=== PATIENT | female | born 1945 | race Caucasian/White ===

== ENCOUNTER 2016-11-19 09:40 | Emergency (ER) | payer MEDICARE ==
[2016-11-19 12:27] VITALS: BP 135/63
--- NOTE | 2016-11-19 13:34 | UC ---
FLU HPI - HPI Summary HPI Summary: Patient is an otherwise healthy 71F who presents to with complaints of DIALLO, congestion, ear pain bilaterally, cough and body aches. She received the flu shot this year but is a business banking manager for medical appts and notes that she is around several patients who have been ill. Sxs began on Thursday and have consistently gotten worse. Temps at home have been running low and around 100.3. She states she has been taking robitussin for relief, which has helped with the cough. She is here today because she is unable to return to work without a note. - History of Current Complaint Chief Complaint: UCRespiratory Stated Complaint: FLU SYMPTOMS Time Seen by Provider: 11/19/16 12:14 Hx Obtained From: Patient ?: No Onset/Duration: Sudden Onset Severity Currently: Mild Severity Initially: Moderate Pain Intensity: 1 Pain Scale Used: 0-10 Numeric Associated Signs & Symptoms: Positive: Fever, T Max - 100.3, F/C, Myalgia, Cough , Nasal Congestion, Headache Related Hx: Possible Flu/Infectious Exposure - occupation - Risk Factors Influenza Risk Factors: Negative - Allergy/Home Medications Allergies/Adverse Reactions: Allergies Allergy/AdvReac Type Severity Reaction Status Date / Time Ergonovine [From Ergotrate] Allergy Rash Verified 03/25/15 18:09 Sulfa Antibiotics Allergy Altered Verified 03/25/15 18:08 Mental Status Sulfisoxazole Allergy Altered Verified 03/25/15 18:08 [From Gantrisin] Mental Status Vitamin E Allergy Rash Verified 03/25/15 18:09 PMH/Surg Hx/FS Hx/Imm Hx Previously Healthy: Yes Endocrine History Of: Denies: Diabetes, Thyroid Disease Cardiovascular History Of: Denies: Cardiac Disorders, Hypertension Respiratory History Of: Reports: Asthma, Bronchitis Denies: COPD GI/ History Of: Denies: Ulcer Cancer History Of: Denies: Breast Cancer - Surgical History Surgical History: Yes Surgery Procedure, Year, and Place: D&C; right meniscus repair; colonoscopy - Family History Known Family History: Positive: Unknown - Social History Occupation: Employed Full-time Lives: With Family Alcohol Use: Rare Substance Use Type: None Smoking Status (MU): Former Smoker Have You Smoked in the Last Year: No When Did the Patient Quit Smoking/Using Tobacco: 1972 Review of Systems Constitutional: Fever, Fatigue Skin: Negative Eyes: Drainage ENT: Nasal Discharge Respiratory: Cough Cardiovascular: Negative Motor: Negative Neurovascular: Negative Musculoskeletal: Myalgia Neurological: Headache All Other Systems Reviewed And Are Negative: Yes Physical Exam Triage Information Reviewed: Yes Appearance: Well-Appearing, No Pain Distress, Well-Nourished Vital Signs: Initial Vital Signs Temp 99.9 F 11/19/16 12:20 Pulse 76 11/19/16 12:20 Resp 18 11/19/16 12:20 BP 135/63 11/19/16 12:20 Pulse Ox 96 11/19/16 12:20 Vital Signs Reviewed: Yes Eye Exam: Normal Eyes: Positive: Conjunctiva Clear Dental Exam: Normal Neck: Positive: Supple, No Lymphadenopathy Respiratory Exam: Normal Cardiovascular Exam: Normal Cardiovascular: Positive: RRR Neurological Exam: Normal Neurological: Positive: Alert Psychological: Positive: Normal Response To Family, Age Appropriate Behavior Skin Exam: Normal Flu Course/Dx - Course Course Of Treatment: FLU POSITIVE. SYMPTOMS BEGAN 4 DAYS AGO SO SHE IS NOT A CANDIDATE FOR TAMIFLU. NOTE GIVEN FOR WORK AND ENCOURAGED REST, FLUIDS AND TYLENOL NEEDED. PATIENT AGREES TO FOLLOW UP AND IS OK FOR DISCHARGE. PATIENT LOOKING WELL AND STABLE. - Differential Dx/Diagnosis Differential Diagnosis/HQI/PQRI: Bronchitis, Influenza, Pneumonia Provider Diagnoses: INFLUENZA B Discharge - Discharge Plan Condition: Stable Disposition: HOME Patient Education Materials: Influenza (ED) Forms: *Work Release Referrals: Tatyana Morales MD [Primary Care Provider] - Additional Instructions: Continue robitussin at home as needed for cough Rest Drink plenty of fluids Hot tea with lemon and honey Humidifier in the home will help
== END 2016-11-19 13:27 | disposition home or self-care (01) ==
LOC: UCEAST 09:40
DX: J11.1 Influenza due to unidentified influenza virus with other respiratory manifestations (principal); J45.909 Unspecified asthma, uncomplicated; Z88.2 Allergy status to sulfonamides; Z88.8 Allergy status to other drugs, medicaments and biological substances
CPT/HCPCS: 87502; 99211; G0463

== ENCOUNTER 2017-04-04 15:37 | Emergency (ER) | payer MEDICARE ==
[2017-04-04 16:14] VITALS: BP 156/73
--- NOTE | 2017-04-04 16:33 | UC ---
Lower Extremity/Ankle HPI - History of Current Complaint Chief Complaint: UCLowerExtremity Stated Complaint: KNEE PAIN Time Seen by Provider: 04/04/17 16:16 Hx Obtained From: Patient Onset/Duration: Gradual Onset - was doing exercises on the floor by kneeling on a pillow. 2-3 times her knee slipped off pillow and on to floor. this was 1 monthago. she has ahd pain on inside of R knee since inicdents. no pain while sitting or driving. pain when rising or standing. has tried ice and heat with little relief. no calf pain or redness Severity Initially: Mild Severity Currently: Mild - ocassionally worsens to moderate Aggravating Factor(s): Standing Alleviating Factor(s): Rest Able to Bear Weight: Yes - Allergies/Home Medications Allergies/Adverse Reactions: Allergies Allergy/AdvReac Type Severity Reaction Status Date / Time Ergonovine [From Ergotrate] Allergy Rash Verified 04/04/17 16:14 Sulfa Antibiotics Allergy Altered Verified 04/04/17 16:14 Mental Status Sulfisoxazole Allergy Altered Verified 04/04/17 16:14 [From Gantrisin] Mental Status Vitamin E Allergy Rash Verified 04/04/17 16:14 PMH/Surg Hx/FS Hx/Imm Hx Previously Healthy: Yes Respiratory History: Asthma - Surgical History Surgical History: Yes Surgery Procedure, Year, and Place: D&C; right meniscus repair; colonoscopy - Family History Known Family History: Positive: Unknown - Social History Occupation: Retired Lives: Alone Alcohol Use: Rare Substance Use Type: None Smoking Status (MU): Former Smoker Have You Smoked in the Last Year: No When Did the Patient Quit Smoking/Using Tobacco: 1973 Review of Systems Constitutional: Negative Skin: Negative Respiratory: Negative Cardiovascular: Negative Musculoskeletal: Other: - pain R knee Neurological: Negative Psychological: Negative All Other Systems Reviewed And Are Negative: Yes Physical Exam Triage Information Reviewed: Yes Appearance: Well-Appearing, No Pain Distress, Well-Nourished Vital Signs: Initial Vital Signs Temp 96.6 F 04/04/17 16:08 Pulse 90 04/04/17 16:08 Resp 16 04/04/17 16:08 BP 156/73 04/04/17 16:08 Pulse Ox 98 04/04/17 16:08 Vital Signs Reviewed: Yes Respiratory Exam: Normal Cardiovascular Exam: Normal Musculoskeletal: Positive: Strength Intact, ROM Intact, Other: - point tenderness medial R knee tibial plateu area. no calf tenderness/redness/ swelling no evidence swelling knee Neurological Exam: Normal Psychological Exam: Normal Skin Exam: Normal Lower Extremity Course/Dx - Differential Dx/Diagnosis Differential Diagnosis/HQI/PQRI: Bursitis, Contusion, DVT, Fracture (Closed), Sprain, Strain Provider Diagnoses: R knee pain Discharge - Discharge Plan Condition: Stable Disposition: HOME Patient Education Materials: Knee Pain (ED) Referrals: Tatyana Morales MD [Primary Care Provider] - 2 Days (if no better) Additional Instructions: elevate your leg use knee immobilizer to rest knee as directed use naproxen as directed report to ER if your pain worsens
== END 2017-04-04 16:39 | disposition home or self-care (01) ==
LOC: UCEAST 15:37
DX: M25.561 Pain in right knee (principal); Z88.2 Allergy status to sulfonamides; Z88.8 Allergy status to other drugs, medicaments and biological substances
CPT/HCPCS: 99212; G0463

== ENCOUNTER 2017-07-21 08:14 | Inpatient (IN) | payer MEDICARE ==
--- NOTE | 2017-07-08 11:34 | HP ---
HISTORY AND PHYSICAL: DATE OF ADMISSION/SURGERY: 07/21/17 DATE OF OFFICE VISIT: 07/06/17 SURGEON: Amada Sanchez MD.* (DICTATED BY MK MOORE) PROCEDURE: Right total knee arthroplasty. CHIEF COMPLAINT: Right knee pain. HISTORY OF PRESENT ILLNESS: Ms. Jenise Perry is a 71-year-old female with complaints of right knee pain secondary to end-stage osteoarthritis. She has failed conservative management and elected to proceed with a right total knee arthroplasty, which is scheduled for 07/21/[address] Sanchez. PAST MEDICAL HISTORY: Migraines and exercise-induced asthma. PAST SURGICAL HISTORY: D and C, right knee arthroscopy, and dental implants. CURRENT MEDICATIONS: 1. Naproxen. 2. Ventolin inhaler. ALLERGIES: To BACTRIM, IBUPROFEN, and STATIN. FAMILY HISTORY: Denies. SOCIAL HISTORY: She is a 71-year-old female. She is retired. She denies the use of drugs. She does not smoke. She uses occasional alcohol. REVIEW OF SYSTEMS: A complete 14-point review of systems was reviewed with the patient, and was all negative and noncontributory. PHYSICAL EXAMINATION GENERAL: She is well developed, well nourished, in no acute distress. VITAL SIGNS: She stands 5 feet 2 inches tall, weighs 160 pounds. Her blood pressure is 140/70, her heart rate is 64. HEENT: Normocephalic, atraumatic. NECK: Supple. No palpable lymph nodes. PULMONARY: The lungs are clear to auscultation bilaterally. CARDIO: Regular rate and rhythm. Strong S1, S2. ABDOMEN: Soft, nontender, and nondistended. NEUROLOGICAL: Alert and oriented x3. Cranial nerves II through XII are intact. MUSCULOSKELETAL: Right lower extremity, the skin is intact. There are no open wounds or abrasions. She has moderate joint effusion, tenderness over the medial and lateral joint line. 10 to 120 degrees of flexion with patellofemoral crepitus. 2+ dorsalis pedis pulses. Intact sensation and her lower extremity muscle group strengths are intact to 5/5. ASSESSMENT AND PLAN: Ms. Jenise Perry is a 71-year-old female with complaints of right knee pain secondary to endstage osteoarthritis. She has failed conservative management and elected to proceed with a right total knee arthroplasty, which is scheduled for 07/21/[address] Sanchez discussed the risks and benefits of the surgery at today's visit and all of her questions were answered. Coumadin, Colace, and Percocet were sent to her pharmacy for postoperative pain control and DVT prophylaxis. She will be see Dr. Sanchez back in 2 weeks after the surgery. MK MOORE [id number]/[facility] #: [id number] [facility] HOSPITALBhargav
[~2017-07-21 08:14] MED LIST: Buffered Lidocaine 0.9% SYRIN* 5 ML/SYR SYRINGE INTRADERM ONE; Buffered Lidocaine 0.9% SYRIN* 5 ML/SYR SYRINGE ONE; Dexamethasone IV* 4 MG/ML 1 ML (4 MG) IV SLOW PU ONE; Dexamethasone IV* 4 MG/ML 1 ML (4 MG) ONE; Famotidine IV* 10 MG/ML 2 ML (20 mg) IV ONE; Famotidine IV* 10 MG/ML 2 ML (20 mg) ONE; ceFAZolin 2 GM PREMIX (*) 2 GM/50 ML BAG IVPB ONE
[2017-07-21] MEDS ORDERED: KETAMINE HCL* 50 MG/ML 10 ML VIAL ONE (11:16)
[2017-07-21] MEDS ORDERED: Midazolam* 1 MG/ML 10 ML VIAL (10 MG) ONE (11:16)
[2017-07-21] MEDS ORDERED: Morphine PF AMP (0.5MG/ML)* 5 MG/10 ML AMP ONE (11:16)
[2017-07-21] MEDS ORDERED: Ondansetron INJ* 2 MG/ML VIAL ONE (11:17)
[2017-07-21] MEDS ORDERED: Bupivacaine 0.5% SDV PF* 30 ML VIAL ONE (11:17)
[2017-07-21] MEDS ORDERED: Propofol* 10 MG/ML 20 ML BTL IV PUSH ONE ×2 (11:17→13:40)
[2017-07-21] MEDS ORDERED: Lidocaine 2% PF * 5 ML VIAL ONE (12:06)
[2017-07-21] MEDS ORDERED: Naloxone* 0.4 MG/ML 1 ML VIAL IV PRN (12:26)
[2017-07-21] MEDS ORDERED: Nalbuphine* 20 MG/ML 1 ML VIAL IV PRN ×2 (12:26)
[2017-07-21] MEDS ORDERED: oxyCODONE/Acetamin 5/325 MG* TAB PO PRN ×2 (12:26)
[2017-07-21] MEDS ORDERED: DiMENhydriNATE IV* 50 MG/ML VIAL IV PUSH PRN (12:26)
[2017-07-21] MEDS ORDERED: Ondansetron INJ* 2 MG/ML VIAL IV PRN (12:26)
[2017-07-21] MEDS ORDERED: Bisacodyl SUPP* 10 MG SUPP PR PRN (13:17)
[2017-07-21] MEDS ORDERED: Temazepam CAP* 15 MG PO PRN (13:17)
[2017-07-21] MEDS ORDERED: Polyethylene Glycol 3350* 17 GM PACKET PO PRN (13:17)
[2017-07-21] MEDS ORDERED: Albuterol HFA INHALER* 8 gm MDI INH PRN (13:26)
[2017-07-21] MEDS ORDERED: Ascorbic Acid TAB* 500 MG PO PRN (13:26)
[2017-07-21] MEDS ORDERED: DiMENhydriNATE IV* 50 MG/ML VIAL ONE (15:23)
[2017-07-21] MEDS ORDERED: Scopolamine 1.5 mg* PATCH ONE (15:23)
[2017-07-21] MEDS: Scopolamine 1.5 mg* PATCH TRANSDERM SCH (15:24)
--- NOTE | 2017-07-21 15:42 | RAD ---
INDICATION: Right knee arthroplasty-postop COMPARISON: June 08, 2017 TECHNIQUE: AP and lateral views were obtained. FINDINGS: There is right knee arthroplasty. Both femoral and tibial components appear well seated. There is a cooling jacket. A surgical drain is in place. IMPRESSION: POST OPERATIVE RIGHT TOTAL KNEE
[2017-07-21] MEDS: Ropivacaine* 300 MG in NS 0.9% 250 ML* 240 ML EPIDURAL SCH (16:46)
[2017-07-21] MEDS ORDERED: Warfarin TAB(*) 6 MG PO ONE (17:00)
[2017-07-21] MEDS: ceFAZolin 1 GM VIAL(*) 1 GM in D5W 50 ML BAG* 50 ML IVPB SCH (20:09)
[2017-07-21] MEDS: Docusate CAP* 100 MG PO SCH (20:11)
[2017-07-21] MEDS: Magnesium Hydroxide LIQ* 30 ML UDC PO SCH (20:11)
[2017-07-22] MEDS: ceFAZolin 1 GM VIAL(*) 1 GM in D5W 50 ML BAG* 50 ML IVPB SCH ×2 (03:40→11:37)
--- NOTE | 2017-07-22 04:57 | OP ---
DATE OF OPERATION: 07/21/17 - ROOM #347 DATE OF : 47 ATTENDING SURGEON: Amada Sanchez MD HAMMER DRIVER: MK Daniel. Ms. Vu did help throughout the procedure with preparation of the leg, wound retraction, manipulation of the knee, and wound closure. ANESTHESIOLOGIST: Dr. Vidal. ANESTHESIA: Spinal. PRE-OP DIAGNOSIS: Severe end-stage degenerative osteoarthritis of the right knee joint. POST-OP DIAGNOSIS: Severe end-stage degenerative osteoarthritis of the right knee joint. OPERATIVE PROCEDURE: Right total knee arthroplasty. TOURNIQUET TIME: 54 minutes. COMPLICATIONS: None. SPECIMENS: Bone and cartilage from the right knee joint sent to Pathology. ESTIMATED BLOOD LOSS: 300 cc. HARDWARE USED: This is cemented [employer] total knee arthroplasty hardware. Two packages of Simplex bone cement. For the femur, a size 5 right narrow femoral Legion component and a tibia size 3, Mariel II tibial baseplate. For the insert, a 9 mm posterior stabilized articular insert, size 3 -4 and for the patella a 32-mm 7.5 thickness, 3-peg all poly patella. BRIEF HISTORY/INDICATIONS: Ms. Jenise Perry is a 71-year-old female with years of increasingly severe right knee pain. She failed conservative treatment with anti- inflammatories, pain medication, physical therapy, and intraarticular injections. Radiographs confirmed severe end-stage arthritis with [id number] contact. Due to continued pain and decreased quality of life , she elected to undergo right total knee arthroplasty. Informed consent was obtained from the patient. She understood the risks of surgery, included but were not limited to bleeding, infection, damage to nearby structures, continued pain, need for further surgery, intraoperative fracture, nerve palsy, hardware failure or loosening, knee stiffness, loss of motion, stroke, heart attack, blood clot, and . She wished to proceed. INTRAOPERATIVE FINDINGS: Intraoperatively, the patient was noted to have tricompartmental degenerative osteoarthritis with full-thickness loss of cartilage. DESCRIPTION OF PROCEDURE: Ms. Jenise Perry was identified in the preanesthesia unit. Her right lower extremity was marked as the correct operative side. Informed consent was signed and placed in the chart. The patient was taken to the operating room and placed under spinal anesthesia. A Torres catheter was placed. Tourniquet was placed on the right thigh. Right lower extremity was prepped and draped in the usual sterile fashion. Preop time -out was made to correctly identify the patient's side and site. Appropriate perioperative antibiotics were given within 1 hour of incision. Tourniquet was inflated. A 14-cm midline incision was made with a 10-blade and carried down to the extensor mechanism. New 10-blade was used to make a standard medial parapatellar arthrotomy. Patella was subluxed laterally. Electrocautery was used to subperiosteally elevate soft tissue off the superomedial tibia to the mid sagittal plane. The knee was flexed up. A drill was used to enter the distal femur. Intramedullary distal femoral cutting guide was pinned on the distal femur. Oscillating saw was used to make the appropriate distal femoral cut. Next, the external rotation guide was pinned on the distal femur and the distal femur was sized to size 5. Size 5 multi- cutting jig was pinned on the distal femur. Oscillating saw was used to make the appropriate 4 chamfer cuts. The PCL was completely released. The tibia was subluxed anteriorly. Extramedullary tibial cutting guide was pinned on the proximal tibia. Oscillating saw was used to make the proximal tibial cut perpendicular to the mechanical axis of the tibia. The bone was carefully removed. The knee was brought out into full extension. A spacer block had good fit. There was medial and lateral ligamentous balancing. Flexion and extension gaps were well balanced. The knee was flexed up. The lamina focuser was placed both medially and laterally. Any remaining meniscus was carefully removed using electrocautery. Curved osteotome was used to remove any posterior osteophytes. Tibial tray and drop xin were placed and confirmed a satisfactory tibial cut. Size 5 narrow right femoral trial was impacted on to the distal femur and had excellent fit. The box for the posterior stabilized implant was prepared using a reamer and box cut osteotome. Size 3 tibial tray with a 9-mm insert trial was placed and the knee was taken through a range of motion. The knee had full extension and 130 degrees of flexion with good patellofemoral tracking. The patella was everted. A 7-mm of patellar bone and cartilage was carefully removed using an oscillating saw. The patella was sized to a size 32. Three peg holes were drilled through the size 32 guide. A 32 trial was placed and the knee was taken through a range of motion. There was satisfactory patellofemoral tracking. All trials were carefully removed. The tibia was subluxed anteriorly and sized to a size 3. Proximal tibia was prepared using a size 3 keel punch. All bony cut surfaces were copiously irrigated with sterile saline and dried. Final implants were cemented into place starting with the tibia, followed by the femur , and last the patella. A 9-mm insert trial was placed while the knee was brought into full extension. Tourniquet was turned down at 54 minutes. The knee was copiously irrigated with sterile saline. Electrocautery was used to obtain meticulous hemostasis. Once the cement had fully cured, the insert trial was removed. Any extra cement was carefully removed from around the implants and capsule. Final insert chosen was a 9-mm posterior stabilized articular insert size 3-4. This was locked into position on the tibial tray. Stability of the insert was checked and rechecked and noted to be stable. The extensor mechanism was closed using interrupted #1 Vicryls over a medium Hemovac drain. The rest of the incision was closed in a layered fashion using 0 and 2-0 Vicryls. Skin was closed using running 3-0 nylon suture. Sterile Xeroform, 4x4s, and Webril were used to cover the incision. Vitaly wrap and cold pack were placed over this. The patient's anesthesia was reversed without difficulty. She was taken to the PACU in stable condition. Intended weightbearing will be weightbearing as tolerated. Intended DVT prophylaxis will be Coumadin with a Lovenox bridge. [id number]/[facility] #: [id number] ROSA
[2017-07-22 05:31] LABS: Hematocrit 37 % (35-47); Hemoglobin 12.2 g/dl (12.0-16.0)
[2017-07-22 05:46] LABS: BUN/Creatinine Ratio 17.6 (8-20); Calcium 8.8 mg/dL (8.6-10.3); EGFR African American 78.6 (>60); EGFR Non-African American 61.1 (>60); Potassium 4.4 mmol/L (3.5-5.0)
[2017-07-22] MEDS ORDERED: Ondansetron TAB* 4 MG PO PRN (06:00)
[2017-07-22] MEDS ORDERED: oxyCODONE/Acetamin 5/325 MG* TAB PO PRN (06:00)
[2017-07-22] MEDS ORDERED: Acetaminophen TAB* 325 MG PO PRN (06:01)
[2017-07-22] MEDS ORDERED: diPHENhydraMINE IV* 50 MG/ML 1 ml VIAL (BENADRYL) IV PRN (06:01)
[2017-07-22] MEDS ORDERED: Morphine INJ* 2 MG/ML 1 ML SYRINGE (TWO MG - NEW SYRINGE VERSION) IV PRN (06:01)
[2017-07-22] MEDS ORDERED: diPHENhydraMINE PO* 25 MG PO PRN (06:01)
[2017-07-22] MEDS ORDERED: Ondansetron INJ* 2 MG/ML VIAL IV PRN (06:01)
[2017-07-22] MEDS: Docusate CAP* 100 MG PO SCH ×2 (08:33→22:17)
[2017-07-22] MEDS: oxyCODONE TAB* 5 MG TAB PO PRN ×3 (08:33→21:55)
[2017-07-22] MEDS: Magnesium Hydroxide LIQ* 30 ML UDC PO SCH ×2 (08:33→22:17)
--- NOTE | 2017-07-22 08:57 | PN ---
Progress Note - Progress Note Date of Service: 07/22/17 SOAP: Subjective: [] Patient seen OOB in chair. She denies RLE pain, chest pain, SOB and nausea. Objective: [] Vital Signs Temp 98.2 F 07/22/17 07:32 Pulse 54 07/22/17 07:32 Resp 18 07/22/17 08:33 BP 95/43 07/22/17 07:32 Pulse Ox 99 07/22/17 08:00 Intake & Output 07/21/17 07/22/17 07/22/17 18:59 06:59 18:59 Intake Total 1890 2030 800 Output Total 1000 625 Balance 890 1405 800 Weight 164 lb Intake: IV Fluids 1650 980 LR 1600 980 NS 50ML, Cefazolin 2G 50 IVPB 50 ABX - CEFAZOLIN 50 Oral 240 1000 800 Output: Torres 800 625 Estimated Blood Loss 200 Laboratory Last Values Hgb 12.2 g/dl (12.0-16.0) 07/22/17 05:12 Hct 37 % (35-47) 07/22/17 05:12 INR (Anticoag Therapy) 1.04 (0.77-1.02) H 07/22/17 05:12 Sodium 135 mmol/L (133-145) 07/22/17 05:12 Potassium 4.4 mmol/L (3.5-5.0) 07/22/17 05:12 Chloride 101 mmol/L (101-111) 07/22/17 05:12 Carbon Dioxide 31 mmol/L (22-32) 07/22/17 05:12 Anion Gap 3 mmol/L (2-11) 07/22/17 05:12 BUN 16 mg/dL (6-24) 07/22/17 05:12 Creatinine 0.91 mg/dL (0.51-0.95) 07/22/17 05:12 Est GFR ( Amer) 78.6 (>60) 07/22/17 05:12 Est GFR (Non-Af Amer) 61.1 (>60) 07/22/17 05:12 BUN/Creatinine Ratio 17.6 (8-20) 07/22/17 05:12 Glucose 116 mg/dL (70-100) H 07/22/17 05:12 Calcium 8.8 mg/dL (8.6-10.3) 07/22/17 05:12 General: Well appearing, No acute distress RLE: Dressing CDI. Dr Sanchez removed drain without complication this morning Bilateral Lower Extremities: Calves supple and nontender without erythema, edema or palpable cords. Negative nay's sign. Sensation intact distally. 2+ DP /PT. DF/PF intact Assessment: [] POD 1 s/p right total knee arthroplasty 07/20, Dr. Sanchez. Plan: []WBAT PT/OT Lovenox, coumadin 8 mg today Continued pain control
[2017-07-22] MEDS: Enoxaparin(*) 40 MG/0.4 ML SYR SUBCUT SCH (11:38)
[2017-07-22] MEDS: Ropivacaine* 300 MG in NS 0.9% 250 ML* 240 ML EPIDURAL SCH (12:47)
[2017-07-22] MEDS: oxyCODONE/Acetamin 5/325 MG* TAB PO PRN (13:00)
[2017-07-22] MEDS ORDERED: Warfarin TAB(*) 4 MG PO ONE (17:00)
[2017-07-23] MEDS: oxyCODONE/Acetamin 5/325 MG* TAB PO PRN ×3 (02:33→21:29)
[2017-07-23 07:13] LABS: Hematocrit 36 % (35-47)
[2017-07-23] MEDS: Cyclobenzaprine TAB* 10 MG PO PRN ×2 (08:31→17:13)
[2017-07-23] MEDS: Docusate CAP* 100 MG PO SCH ×2 (08:31→21:30)
[2017-07-23] MEDS: Magnesium Hydroxide LIQ* 30 ML UDC PO SCH ×2 (08:31→21:30)
--- NOTE | 2017-07-23 08:58 | PN ---
Progress Note - Progress Note Date of Service: 07/23/17 SOAP: Subjective: []Patient seen OOB in chair. She is complaining of pain and tightness of her operative knee both anteriorly and posteriorly. She feels as though she has a "santo's cyst behind her knee". She denies chest pain or shortness of breath but confirms congestion. She is nauseous. She has not been using her incentive spirometer as she was unsure if she was using it correctly. Objective: [] Vital Signs Temp 98.1 F 07/23/17 08:03 Pulse 77 07/23/17 08:03 Resp 16 07/23/17 08:31 BP 151/57 07/23/17 08:03 Pulse Ox 100 07/23/17 08:03 Intake & Output 07/22/17 07/23/17 07/23/17 18:59 06:59 18:59 Intake Total 2366 1175 Output Total 650 2050 500 Balance 1716 -875 -500 Intake: IV Fluids 1046 ABX - CEFAZOLIN 105 LR 941 Oral 1320 1175 Output: Urine 550 2050 500 Emesis 100 Other: Estimated Void Large # Voids 1 Laboratory Last Values Hgb 12.0 g/dl (12.0-16.0) 07/23/17 07:02 Hct 36 % (35-47) 07/23/17 07:02 INR (Anticoag Therapy) 1.43 (0.77-1.02) H 07/23/17 07:02 Sodium 135 mmol/L (133-145) 07/22/17 05:12 Potassium 4.4 mmol/L (3.5-5.0) 07/22/17 05:12 Chloride 101 mmol/L (101-111) 07/22/17 05:12 Carbon Dioxide 31 mmol/L (22-32) 07/22/17 05:12 Anion Gap 3 mmol/L (2-11) 07/22/17 05:12 BUN 16 mg/dL (6-24) 07/22/17 05:12 Creatinine 0.91 mg/dL (0.51-0.95) 07/22/17 05:12 Est GFR ( Amer) 78.6 (>60) 07/22/17 05:12 Est GFR (Non-Af Amer) 61.1 (>60) 07/22/17 05:12 BUN/Creatinine Ratio 17.6 (8-20) 07/22/17 05:12 Glucose 116 mg/dL (70-100) H 07/22/17 05:12 Calcium 8.8 mg/dL (8.6-10.3) 07/22/17 05:12 General: Well appearing sitting in chair. Patient is in pain while her dressing is changed and with even slight movement of her right knee. RLE: Dressing changed. Incision CDI. No discharge. Mild purple bruising around the incision site as well as along the lateral jointline. No fluctuance. Patient is tender to palpation in the popliteal area. Bilateral lower extremities: Calves are soft and supple. Right calf tender proximally. No palpable cords. Negative nay's sign. DP/PT pulses 2+. DF/PF intact. Sensation intact distally. Assessment: []POD 2 s/p right total knee arthroplasty 07/21 Dr Sanchez Plan: []WBAT PT/OT Lovenox, coumadin 4 mg today Reviewed proper use of and importance of incentive spirometer Ordered R venous dopplar due to pain of posterior knee/calf Plan for DC 07/24, TBD rehab vs home
[2017-07-23] MEDS: Ropivacaine* 300 MG in NS 0.9% 250 ML* 240 ML EPIDURAL SCH (12:14)
[2017-07-23] MEDS: Enoxaparin(*) 40 MG/0.4 ML SYR SUBCUT SCH (12:27)
--- NOTE | 2017-07-23 12:29 | RAD ---
HISTORY: Calf pain, status post right total knee arthroplasty COMPARISONS: July 08, 2017 TECHNIQUE: Multiple transverse and longitudinal ultrasound images were obtained of the right lower extremity from the level of the common femoral vein inferiorly through to the infrapopliteal veins using grayscale, color Doppler, and spectral Doppler imaging with and without compression and with augmentation. Comparison images were obtained of the contralateral common femoral vein. FINDINGS: VEINS: The venous system of the right lower extremity is compressible throughout its course, with normal flow on color Doppler imaging and normal response to augmentation on spectral Doppler imaging. SOFT TISSUES: Unremarkable. OTHER FINDINGS: None. IMPRESSION: NO RIGHT LOWER EXTREMITY DEEP VEIN THROMBOSIS
[2017-07-23] MEDS ORDERED: Warfarin TAB(*) 4 MG PO ONE (17:00)
[2017-07-24] MEDS: oxyCODONE/Acetamin 5/325 MG* TAB PO PRN ×3 (02:48→12:16)
[2017-07-24 06:48] LABS: Hematocrit 38 % (35-47); Hemoglobin 12.9 g/dl (12.0-16.0)
[2017-07-24] MEDS: Docusate CAP* 100 MG PO SCH (07:34)
--- NOTE | 2017-07-24 07:34 | PN ---
Progress Note - Progress Note Date of Service: 07/24/17 SOAP: Subjective: Pt. is alert, reports pain is controlled. Objective: RLE - dressing c/d/i. distally nvi. Vital Signs: Temp Pulse Resp BP Pulse Ox 98.1 F 70 16 117/56 94 07/24/17 04:03 07/24/17 04:03 07/24/17 05:26 07/24/17 04:03 07/24/17 04:03 Laboratory Results - last 24 hr 07/23/17 07/23/17 07/24/17 07:02 07:02 06:11 Hgb 12.0 12.9 Hct 36 38 INR (Anticoag Therapy) 1.43 H 07/24/17 06:11 Hgb Hct INR (Anticoag Therapy) 1.51 H Assessment: 71 yo F pod 3 s/p RTKA Plan: wbat rle lovenox today - 6 mg coumadin tonight pt/ot plan d/c to snf today - [facility]
[2017-07-24] MEDS: Cyclobenzaprine TAB* 10 MG PO PRN (07:36)
[2017-07-24] MEDS: Magnesium Hydroxide LIQ* 30 ML UDC PO SCH (08:37)
--- NOTE | 2017-07-24 10:40 | PN ---
Progress Note - Progress Note Date of Service: 07/24/17 SOAP: Subjective: 71 y/o female s/p R TKA by DR Sanchez 07/21/2017. The patient is concerned about going to rehabilitation, however understands it would benefit her recover. VSS afebrile overnight. Doppler negative for DVT overnight. [facility] Objective: General- Well appearing, NAD, MSK- Dressing taken down, incision c/d/i, new dressing placed, moderate swelling , mild ecchymosis, mild edema around incision proximally. + DF/PF b/l, negative homans b/l. Vital Signs Temp 97.9 F 07/24/17 07:35 Pulse 80 07/24/17 07:35 Resp 16 07/24/17 07:38 BP 131/53 07/24/17 07:35 Pulse Ox 100 07/24/17 07:35 Intake & Output 07/23/17 07/24/17 07/24/17 18:59 06:59 18:59 Intake Total 830 640 Output Total 1800 0 Balance -970 640 Intake: Oral 830 640 Output: Urine 1800 0 Other: Estimated Void Large Medium # Bowel Movements 1 Estimated Stool Amount Large # Voids 1 1 Assessment: 71 y/o female s/p R TKA by DR Sanchez 07/21/2017. Plan: - [facility] - Continue current pain control - Continue PT as shown - DVT pro- INR 1.5, continue lovenox, coumadin 6mg tonight Acetaminophen (Tylenol Tab*) 650 mg PO Q4H PRN PRN Reason: PAIN OR TEMPERATURE Albuterol (Ventolin Hfa Inhaler*) 1 puff INH Q4HR PRN PRN Reason: SOB/WHEEZING Last Admin: 07/22/17 07:45 Dose: 1 puff Ascorbic Acid (Vitamin C Tab*) 500 mg PO ONCE PRN PRN Reason: COLD SYMPTOMS Bisacodyl (Dulcolax Supp*) 10 mg TN DAILY PRN PRN Reason: constipation Cyclobenzaprine HCl (Flexeril Tab*) 10 mg PO TID PRN PRN Reason: SPASMS Last Admin: 07/24/17 07:36 Dose: 10 mg Diphenhydramine HCl (Benadryl Iv*) 25 mg IV Q6H PRN PRN Reason: itching Diphenhydramine HCl (Benadryl Po*) 25 mg PO Q6H PRN PRN Reason: itching Docusate Sodium (Colace Cap*) 100 mg PO BID [facility] Last Admin: 07/24/17 07:34 Dose: 100 mg Enoxaparin Sodium (Lovenox(*)) 40 mg SUBCUT Q24H [facility] Last Admin: 07/23/17 12:27 Dose: 40 mg Ropivacaine 300 mg/ Sodium (Chloride) 300 mls @ 0 mls/hr EPIDURAL Q24H [facility]; Per Protocol PRN Reason: Protocol Last Admin: 07/23/17 12:14 Dose: Not Given Lactated Ringer's (Lactated Ringers 1000 Ml Bag*) 1,000 mls @ 100 mls/hr IV PER RATE [facility] Last Admin: 07/22/17 03:36 Dose: 100 mls/hr Lactulose (Lactulose*) 30 ml PO Q6H PRN PRN Reason: constipation Magnesium Hydroxide (Milk Of Magnesia Liq*) 30 ml PO BID [facility] Last Admin: 07/24/17 08:37 Dose: Not Given Morphine Sulfate (Morphine Inj (Syringe)*) 2 mg IV Q2H PRN PRN Reason: PAIN Ondansetron HCl (Zofran Inj*) 4 mg IV Q6H PRN PRN Reason: nausea Ondansetron HCl (Zofran Tab*) 4 mg PO Q6H PRN PRN Reason: NAUSEA Oxycodone HCl (Roxycodone Tab*) 10 mg PO Q4H PRN PRN Reason: PAIN Last Admin: 07/22/17 21:55 Dose: 10 mg Oxycodone/Acetaminophen (Percocet 5/325 Tab*) 1 tab PO Q4H PRN PRN Reason: PAIN Oxycodone/Acetaminophen (Percocet 5/325 Tab*) 2 tab PO Q4H PRN PRN Reason: PAIN Last Admin: 07/24/17 07:34 Dose: 2 tab Pharmacy Profile Note (Scopolamine Patch Remove*) 1 note PATCH OFF .AFTER 72 HOURS ONE Stop: 07/24/17 15:24 Pharmacy Profile Note (Coumadin Daily Reminder*) 1 note FOLLOW UP 1700 [facility] Last Admin: 07/23/17 17:13 Dose: 1 note Polyethylene Glycol/Electrolytes (Miralax*) 17 gm PO DAILY PRN PRN Reason: Constipation Scopolamine (Transderm-Scop 1.5 Mg Patch*) 1 patch TRANSDERM Q72H [facility] Stop: 07/24/17 15:22 Last Admin: 07/21/17 15:24 Dose: 1 patch Temazepam (Restoril Cap*) 15 mg PO BEDTIME PRN PRN Reason: INSOMNIA Warfarin Sodium (Coumadin Tab(*)) 6 mg PO ONCE@1700 [facility] PRN Reason: Protocol Stop: 07/24/17 17:01
[2017-07-24 11:44] VITALS: BP 122/61
--- NOTE | 2017-07-24 12:06 | DS ---
DATE OF ADMISSION: 07/21/2017. DATE OF DISCHARGE: 07/24/2017. ATTENDING PHYSICIAN: Dr. Amada Sanchez * (dictated by MK Rice). CHIEF COMPLAINT: 1. Right knee pain. 2. Migraines. 3. Exercise-induced asthma. DISCHARGE DIAGNOSES: 1. Status post right total knee arthroplasty. 2. History of migraines. 3. History of exercise-induced asthma. PROCEDURE: Right total knee arthroplasty. CONSULTATIONS: 1. Physical Therapy. 2. Occupational Therapy. BRIEF HISTORY: Ms. Jenise Perry is a very pleasant, 71-year-old female with severe end-stage degenerative osteoarthritis of the right knee who failed conservative treatment and elected to undergo a right total knee arthroplasty on 07/21/[address] Amada Sanchez. HOSPITAL COURSE: Ms. Jenise Perry was admitted to [facility] on 12/2016 where she underwent a right total knee arthroplasty by Dr. Amada Sanchez which was uncomplicated. Estimated blood loss was 300 cc. The patient recovered on the Surgical Short Stay Unit. Her Torres was removed on postoperative day two and she was voiding on her own without difficulty. She was advanced to a regular diet and her pain was controlled with p.o. Percocet and Flexeril. She was restarted on her home medications. Her labs and vital signs remained stable. She was able to bear weight as tolerated on the right lower extremity; however, she advanced slowly with physical therapy and it was recommended the patient be discharged to outpatient rehab. Her DVT prophylaxis was managed with Lovenox and Coumadin. By postoperative day three, she was orthopedically and medically stable for discharge to go to [facility] for rehabilitation services. PHYSICAL EXAMINATION: General: Well-appearing, in no acute distress, alert and oriented. Vitals Signs on the day of discharge: Pulse 80, temperature 97.9, respirations 16, blood pressure 131/53, pulse oxygenation 100 percent on room air. Examination of the right lower extremity demonstrates the surgical incision to be clean, dry and intact with moderate swelling and mild ecchymosis noted throughout the incision. A new dressing was placed. The patient had equal dorsiflexion and plantarflexion bilaterally with a negative Homans signs bilaterally. Sensation was intake to light touch bilaterally. LABORATORY DATA: On the date of discharge: H and H 12.9 and 38 with an INR of 1.51. RADIOGRAPHS: Postoperative films obtained of the right knee on 07/21/2017 demonstrated a right knee arthroplasty in good position. DISCHARGE MEDICATIONS: 1. Ventolin inhaler one puff q.4 hours prn. 2. Vitamin C 500 mg p.o. daily. 3. Flexeril 10 mg p.o. t.i.d. prn. 4. Colace 100 mg p.o. b.i.d. 5. Percocet 5/325 one to two tablets every 4 to 6 hours as needed for pain. 6. Coumadin 2 mg one to three tablets daily at 5:00 p.m. per physician's instructions. CONDITION ON DISCHARGE: Stable. DISCHARGE INSTRUCTIONS: Ms. Jenise Perry is a very pleasant, 71-year-old female status post right total knee arthroplasty which was uncomplicated. She is orthopedically and medically stable for discharge to go to [facility] with continued rehabilitation services. Her labs and vital signs were stable. She can restart her home medications. She will take 6 mg of Coumadin tonight, 4 mg on July 25 and 4 mg on July 26 with a repeat INR check on Thursday. She will have INR draws on Thursday and by the nurse at [facility]. She will remain weight-bearing as tolerated on the right lower extremity and will continue physical therapy. She will take Percocet and Flexeril as needed for pain control and Colace up to three times a day for constipation. She will follow-up with Dr. Sanchez in approximately 10 to 14 days for incision check and suture removal. She was instructed to go to the ER should she develop chest pain or shortness of breath. Should she develop fever, increasing pain or redness, she is to call the office immediately. MK RICE [id number]/[facility] #: [id number] ROSA
[2017-07-24] MEDS: Enoxaparin(*) 40 MG/0.4 ML SYR SUBCUT SCH (12:16)
[2017-07-24] MEDS: Ropivacaine* 300 MG in NS 0.9% 250 ML* 240 ML EPIDURAL SCH (12:22)
[2017-07-24] MEDS: Scopolamine 1.5 mg* PATCH TRANSDERM SCH (12:23)
[2017-07-24] MEDS ORDERED: Scopolamine PATCH Remove* 1 NOTE MISC PATCH OFF ONE (15:23)
[2017-07-24] MEDS ORDERED: Warfarin TAB(*) 6 MG PO SCH (17:00)
== END 2017-07-24 14:25 | DRG 470 ==
LOC: AA 08:14 → SSU 17:25
PROVIDERS: ADMIT Orthopaedic Surgery Adult Reconstructive Orthopaedic Surgery; ATTEND Orthopaedic Surgery Adult Reconstructive Orthopaedic Surgery
PROC: 0SRC0J9 Replacement of Right Knee Joint with Synthetic Substitute, Cemented, Open Approach (ICD-10-PCS; principal; 2017-07-22)
DX: M17.11 Unilateral primary osteoarthritis, right knee (principal); E66.3 Overweight; G43.909 Migraine, unspecified, not intractable, without status migrainosus; J45.990 Exercise induced bronchospasm; Z79.01 Long term (current) use of anticoagulants; Z88.8 Allergy status to other drugs, medicaments and biological substances; Z88.1 Allergy status to other antibiotic agents; Z68.30 Body mass index [BMI] 30.0-30.9, adult
CPT/HCPCS: 36415; 62323; 80048; 85014; 85018; 85610; 94760; A9270-GY; C1776; J0690; J1100; J1240; J1650; J2250; J2405; J2704; J2795

== ENCOUNTER 2018-02-06 12:17 | Emergency (ER) | payer MEDICARE ==
[2018-02-06 13:17] VITALS: BP 152/81
--- NOTE | 2018-02-06 13:24 | UC ---
Skin Complaint HPI - HPI Summary HPI Summary: 72 y/o female presets to the urgent care c/o tick bite in her left inner upper thigh since yesterday. Pt removed the tick and brought it which is tiny. She thinks it has been probably 24hrs on her since [place] was [place]. Area is red and mildly painful. She is concerned w/ Lyme disease. Pt states if she can get the Doxycycline home since last year when she received the Tx for another tick bite she vomited afterwards. She denies DIALLO, fever, joint pains, SOB, chest pain, abdominal pain, N/V/D. - History of Current Complaint Chief Complaint: UCSkin Time Seen by Provider: 02/06/18 13:22 Stated Complaint: TICK BITE Hx Obtained From: Patient ?: No - Menopausal Onset/Duration: Gradual Onset, Lasting Days - 1 day, Still Present Skin Exposure Onset/Duration: Days Ago - 1 day Timing: Constant Onset Severity: Mild Current Severity: None Pain Intensity: 2 Pain Scale Used: 0-10 Numeric Location: Discrete - left upper thigh Character: Pruritus, Redness Aggravating Factor(s): Touch Associated Signs & Symptoms: Positive: Rash. Negative: Fever, Chills, Tenderness Related History: Possible Reaction to: Insect - Allergy/Home Medications Allergies/Adverse Reactions: Allergies Allergy/AdvReac Type Severity Reaction Status Date / Time ergonovine [From Ergotrate] Allergy Rash Verified 02/06/18 13:19 Sulfa (Sulfonamide Allergy Rash Verified 02/06/18 13:19 Antibiotics) vitamin E (d-alpha Allergy Rash Verified 02/06/18 13:19 tocopherol) statins Allergy Unknown Uncoded 02/06/18 13:19 Reaction Details Home Medications: Home Medications Albuterol HFA INHALER* [Ventolin HFA Inhaler*] 1 - 2 puff INH DAILY 02/06/18 [ History Confirmed 02/06/18] Naproxen TAB* [Naprosyn 375 mg TAB*] 1 tab PO BID 02/06/18 [History Confirmed ] Review of Systems Constitutional: Negative Skin: Rash - left upper thigh tick bite Eyes: Negative ENT: Negative Respiratory: Negative Cardiovascular: Negative Gastrointestinal: Negative Genitourinary: Negative Motor: Negative Neurovascular: Negative Musculoskeletal: Negative Neurological: Negative Psychological: Negative Is Patient Immunocompromised?: No All Other Systems Reviewed And Are Negative: Yes PMH/Surg Hx/FS Hx/Imm Hx Previously Healthy: Yes Other Endocrine History: Osteoarthritis - Surgical History Surgical History: Yes Surgery Procedure, Year, and Place: 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 D&C 1988 [facility]. right arthroscopy meniscus repair [facility]. Right knee replacement - Family History Known Family History: Positive: Cardiac Disease, Hypertension, Diabetes - Social History Occupation: Retired Lives: Alone Alcohol Use: Occasionally Substance Use Type: None Smoking Status (MU): Never Smoked Tobacco Type: Cigarettes Amount Used/How Often: 1PPD for 9 years Have You Smoked in the Last Year: No When Did the Patient Quit Smoking/Using Tobacco: 1971 - Immunization History Most Recent Influenza Vaccination: 2016 Most Recent Pneumonia Vaccination: 2005 Physical Exam - Summary Physical Exam Summary: Vital Signs Reviewed: Yes General: well developed, well nourished female sitting in the examining table w/ o any apparent distress. Eyes: Positive: Conjunctiva Clear - PERRLA, EOMI ENT: Positive: Normal ENT inspection, Hearing grossly normal, Pharynx normal, TMs normal Neck: Positive: Supple, Nontender, No Lymphadenopathy Respiratory: Positive: Chest nontender, Lungs clear, Normal breath sounds Cardiovascular: Positive: RRR, No Murmur, Pulses Normal Abdomen Description: Positive: Nontender, No Organomegaly, Soft. Negative: CVA Tenderness (R), CVA Tenderness (L) Bowel Sounds: Positive: Present Musculoskeletal: Positive: Strength Intact, ROM Intact, No Edema Neurological Exam: Normal Psychological Exam: Normal Skin: Positive: rashes - proximal Medial aspect of upper thigh with tick bite with surrounding erythema, non tender to palpation. tick no longer present, no swelling or drainage observed. Triage Information Reviewed: Yes Vital Signs: Initial Vital Signs Temp 97.7 F 02/06/18 13:14 Pulse 98 02/06/18 13:14 Resp 12 02/06/18 13:14 BP 152/81 02/06/18 13:14 Pulse Ox 97 02/06/18 13:14 Course/Dx - Course Course Of Treatment: 72 y/o female presets to the urgent care c/o tick bite in her left inner upper thigh since yesterday. Pt removed the tick and brought it which is tiny. She thinks it has been probably 24hrs on her since she was in [place] yesterday morning. Area is red and mildly painful. She is concerned w/ Lyme disease. Pt states if she can get the Doxycycline home since last year when she received the Tx for another tick bite she vomited afterwards. She denies DIALLO, fever, joint pains, SOB, chest pain, abdominal pain , N/V/D.Pt w/ proximal Medial aspect of upper thigh with tick bite with surrounding erythema, non tender to palpation. tick no longer present, no swelling or drainage observed on examination. Antibiotic prophylaxis with Doxycycline given to the patient to prevent lyme Disease..Now she changed her mind and requested medication to be sent to pharmacy. Medication Rx and sent to paharmacy. Pt advised to observe the area for the development or Erythema Migrans for upto 30 days following exposure. Advised if he develops fever or erythema Migrans to return to the clinic or PCP for further treatment. Pt's BP is elevated today advised to decrease salt in diet, monitor BP and f/u with PCP for further management. Pt understood and agreed with plan of care. - Differential Diagnoses - Skin Complaint Differential Diagnoses: Abscess, Contact Dermatitis, Local Allergic Reaction, Tick Born Illness, Urticaria, Other - insect bite, bee sting - Diagnoses Provider Diagnoses: 1- Medial aspect of LF upper thigh tick bite. 2-Elevated BP w/o Hx of HTN Discharge - Sign-Out/Discharge Documenting (check all that apply): Discharge/Admit/Transfer - D/C home - Discharge Plan Condition: Stable Disposition: HOME Prescriptions: DOXYcycline CAP(*) [DOXYcycline 100MG CAP(*)] 100 mg PO DAILY #2 cap Patient Education Materials: Tick Bite (ED), Low-Sodium Diet (ED) Referrals: Corry HERNANDEZ,Jose Lisa [Medical Doctor] - If Needed Tatyana Morales MD [Primary Care Provider] - 2 Weeks Additional Instructions: 1- Please observe the area for the development or Erythema Migrans for upto 30 days following exposure. Components of the tick saliva can cause transient erythema that should not be confused with Erythema Migrans. If you develop the bull's eye rash, fever, joint pains please return to the urgent care or f/u with your PCP or Dr Wheatley who specializes in Lyme disease for further management. 2-Antibiotic prophylaxis with Doxycycline was given to you today to prevent lyme Disease. Lyme serology can be drawn in 2 weeks with your PCP to r/o Lyme disease since there is probability of negative results at early exposure. 3-Your BP is elevated today. please decrease salt in your diet, monitor BP and if it continues to be elevated please f/u with your PCP for further management - Billing Disposition and Condition Condition: STABLE Disposition: Home
[2018-02-06] MEDS ORDERED: DOXYcycline CAP(*) 100 MG PO ONE ×2 (13:39→13:45)
== END 2018-02-06 14:04 | disposition home or self-care (01) ==
LOC: UCEAST 12:17
DX: S70.362A Insect bite (nonvenomous), left thigh, initial encounter (principal); W57.XXXA Bitten or stung by nonvenomous insect and other nonvenomous arthropods, initial encounter; Y93.01 Activity, walking, marching and hiking; Y92.838 Other recreation area as the place of occurrence of the external cause; R03.0 Elevated blood-pressure reading, without diagnosis of hypertension; Z88.2 Allergy status to sulfonamides; Z88.8 Allergy status to other drugs, medicaments and biological substances; Z96.651 Presence of right artificial knee joint; Z82.49 Family history of ischemic heart disease and other diseases of the circulatory system; Z83.3 Family history of diabetes mellitus
CPT/HCPCS: 99212; A9270-GY; G0463

== ENCOUNTER 2018-11-12 15:15 | Emergency (ER) | payer MEDICARE ==
[2018-11-12 15:28] VITALS: BP 135/65
--- NOTE | 2018-11-12 15:33 | UC ---
Skin Complaint HPI - HPI Summary HPI Summary: 73 y/o female presents to the urgent care c/o tick bite in the Rt lower back since Thursday night 11/10/2018. Pt reports she walked her dog and then she went to sleep and then on morning she noticed the tick and removed it. She is not sure if she still has some parts of the tick. Pt w/ Hx of tick bite in the past, but has taken prophylactic treatment. She states she rather wants the antibiotic to be sent to the pharmacy since is cost less. Pt deneis fever, DIALLO, joint pain, SOB, chest pain, abdominal pain, N/V/d. Pain is 1/10 at touch at tick bite. - History of Current Complaint Chief Complaint: UCSkin Time Seen by Provider: 11/12/18 15:32 Stated Complaint: TICK BITE Hx Obtained From: Patient ?: No Onset/Duration: Sudden Onset, Lasting Days - 2 days, Still Present Skin Exposure Onset/Duration: Days Ago - 2 days Timing: Constant Onset Severity: Mild Current Severity: Mild Pain Intensity: 1 Pain Scale Used: 0-10 Numeric Location: Discrete - RT lwoer back Character: Redness Aggravating Factor(s): Touch Alleviating Factor(s): Other - tick removal Associated Signs & Symptoms: Positive: Rash - tick bite. Negative: Fever, Chills, Drainage, Tenderness Related History: Possible Reaction to: Insect - Allergy/Home Medications Allergies/Adverse Reactions: Allergies Allergy/AdvReac Type Severity Reaction Status Date / Time ergonovine [From Ergotrate] Allergy Rash Verified 11/12/18 15:29 Sulfa (Sulfonamide Allergy Rash Verified 11/12/18 15:29 Antibiotics) vitamin E (d-alpha Allergy Rash Verified 11/12/18 15:29 tocopherol) statins Allergy Unknown Uncoded 02/06/18 13:19 Reaction Details PMH/Surg Hx/FS Hx/Imm Hx Previously Healthy: Yes Endocrine History: Dyslipidemia Respiratory History: Asthma Neurological History: Migraine - Surgical History Surgical History: Yes Surgery Procedure, Year, and Place: 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 [facility]C 1987 [facility]. right arthroscopy meniscus repair [facility]. Right knee replacement - Family History Known Family History: Positive: Cardiac Disease, Hypertension, Diabetes - Social History Occupation: Retired Lives: With Family Alcohol Use: Occasionally Substance Use Type: None Smoking Status (MU): Former Smoker Type: Cigarettes Amount Used/How Often: 1PPD for 9 years Have You Smoked in the Last Year: No When Did the Patient Quit Smoking/Using Tobacco: 1971 - Immunization History Most Recent Influenza Vaccination: 2017 Most Recent Pneumonia Vaccination: 2005 Review of Systems All Other Systems Reviewed And Are Negative: Yes Constitutional: Positive: Negative Skin: Positive: Rash - tick bite in the Rt lower back Eyes: Positive: Negative ENT: Positive: Negative Respiratory: Positive: Negative Cardiovascular: Positive: Negative Gastrointestinal: Positive: Negative Genitourinary: Positive: Negative Motor: Positive: Negative Neurovascular: Positive: Negative Musculoskeletal: Positive: Negative Neurological: Positive: Negative Psychological: Positive: Negative Is Patient Immunocompromised?: No Physical Exam - Summary Physical Exam Summary: Vital Signs Reviewed: Yes General: well developed, well nourished female sitting in the examining table w/ o any apparent distress. Eyes: Positive: Conjunctiva Clear - PERRLA, EOMI ENT: Positive: Normal ENT inspection, Hearing grossly normal, Pharynx normal, TMs normal Neck: Positive: Supple, Nontender, No Lymphadenopathy Respiratory: Positive: Chest nontender, Lungs clear, Normal breath sounds Cardiovascular: Positive: RRR, No Murmur, Pulses Normal Abdomen Description: Positive: Nontender, No Organomegaly, Soft. Negative: CVA Tenderness (R), CVA Tenderness (L) Bowel Sounds: Positive: Present Musculoskeletal: Positive: Strength Intact, ROM Intact, No Edema Neurological Exam: Normal Psychological Exam: Normal Skin: Positive: rashes -RT lower back with tick bite with surrounding erythema , non tender to palpation. tick no longer present, no swelling or drainage observed. Triage Information Reviewed: Yes Vital Signs: Initial Vital Signs Temp 98.1 F 11/12/18 15:23 Pulse 67 11/12/18 15:23 Resp 18 11/12/18 15:23 BP 135/65 11/12/18 15:23 Pulse Ox 98 11/12/18 15:23 Course/Dx - Course Course Of Treatment: 73 y/o female presents to the urgent care c/o tick bite in the Rt lower back since Thursday night 11/10/2018. Pt reports she walked her dog and then she went to sleep and then on morning she noticed the tick and removed it. She is not sure if she still has some parts of the tick. Pt w/ Hx of tick bite in the past, but has taken prophylactic treatment. She states she rather wants the antibiotic to be sent to the pharmacy since is cost less. Pt denies fever, DIALLO, joint pain, SOB, chest pain, abdominal pain, N/V/d. Pain is 1/10 at touch at tick bite.Hx obtained. Pt w/ tick bite on the RT lower back no tick remnants presents on examination. Area cleaned w/ alcohol swabs. Antibiotic prophylaxis w / Doxycycline ordered to pharmacy to prevent lyme Disease. Pt advised to observe the area for the development or Erythema Migrans for upto 30 days following exposure. Advised if he develops fever or erythema Migrans to return to the clinic or PCP for further treatment .Pt understood and agreed with plan of care. - Differential Diagnoses - Skin Complaint Differential Diagnoses: Abscess, Cellulitis, Local Allergic Reaction, Tick Born Illness, Urticaria - Diagnoses Provider Diagnosis: Tick bite of lower back Discharge - Sign-Out/Discharge Documenting (check all that apply): Patient Departure All imaging exams completed and their final reports reviewed: No Studies - Discharge Plan Condition: Stable Disposition: HOME Prescriptions: DOXYcycline CAP(*) [DOXYcycline 100MG CAP(*)] 200 mg PO DAILY #2 cap Patient Education Materials: Tick Bite (ED) Referrals: Tatyana Morales MD [Primary Care Provider] - 2 Weeks Additional Instructions: 1- Please observe the area for the development or Erythema Migrans for upto 30 days following exposure. Components of the tick saliva can cause transient erythema that should not be confused with Erythema Migrans. If you develop the bull's eye rash, fever, joint pains please return to the urgent care or f/u with your PCP for further management. 2-Antibiotic prophylaxis with Doxycycline was sent to pharmacy to prevent lyme Disease. Lyme serology can be drawn in 2 weeks with your PCP to r/o Lyme disease since there is probability of negative results at early exposure. - Billing Disposition and Condition Condition: STABLE Disposition: Home
== END 2018-11-12 16:15 | disposition home or self-care (01) ==
LOC: UCEAST 15:15
DX: S30.860A Insect bite (nonvenomous) of lower back and pelvis, initial encounter (principal); W57.XXXA Bitten or stung by nonvenomous insect and other nonvenomous arthropods, initial encounter; Y93.K1 Activity, walking an animal; E78.5 Hyperlipidemia, unspecified; J45.909 Unspecified asthma, uncomplicated; Z88.2 Allergy status to sulfonamides; Z88.8 Allergy status to other drugs, medicaments and biological substances; Z87.891 Personal history of nicotine dependence
CPT/HCPCS: 99212; G0463

== ENCOUNTER 2019-07-11 17:43 | Emergency (ER) | payer MEDICARE ==
[2019-07-11 17:56] VITALS: BP 139/75
--- NOTE | 2019-07-11 18:38 | UC ---
Skin Complaint HPI - HPI Summary HPI Summary: 3 bug bites on her face after staying at her daughter's house. itchy and very swollen. - History of Current Complaint Chief Complaint: UCGeneralIllness Time Seen by Provider: 07/11/19 18:08 Stated Complaint: INSECT BITE Hx Obtained From: Patient Pain Intensity: 0 Location: Discrete, Face Aggravating Factor(s): Nothing Alleviating Factor(s): Nothing - Allergy/Home Medications Allergies/Adverse Reactions: Allergies Allergy/AdvReac Type Severity Reaction Status Date / Time bee venom protein (honey bee) Allergy Intermediate Rash Verified 07/11/19 17:57 ergonovine [From Ergotrate] Allergy Rash Verified 11/12/18 15:29 Sulfa (Sulfonamide Allergy Rash Verified 11/12/18 15:29 Antibiotics) vitamin E (d-alpha Allergy Rash Verified 11/12/18 15:29 tocopherol) statins Allergy Unknown Uncoded 02/06/18 13:19 Reaction Details PMH/Surg Hx/FS Hx/Imm Hx Previously Healthy: Yes Respiratory History: Asthma - Surgical History Surgical History: Yes Surgery Procedure, Year, and Place: 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 D&C 1988 [facility]. right arthroscopy meniscus repair [facility]. Right knee replacement - Family History Known Family History: Positive: Unknown, Cardiac Disease, Hypertension, Diabetes - Social History Alcohol Use: Rare Substance Use Type: None Smoking Status (MU): Former Smoker Type: Cigarettes Amount Used/How Often: 1PPD for 9 years Have You Smoked in the Last Year: No When Did the Patient Quit Smoking/Using Tobacco: 1971 - Immunization History Most Recent Influenza Vaccination: 2017 Most Recent Pneumonia Vaccination: 2005 Review of Systems All Other Systems Reviewed And Are Negative: Yes Constitutional: Negative: Fever Skin: Positive: Rash Respiratory: Negative: Shortness Of Breath Neurovascular: Negative: Decreased Sensation Neurological: Negative: Headache Physical Exam Triage Information Reviewed: Yes Appearance: Well-Appearing Vital Signs: Initial Vital Signs Temp 98.5 F 07/11/19 17:51 Pulse 98 07/11/19 17:51 Resp 18 07/11/19 17:51 BP 139/75 07/11/19 17:51 Pulse Ox 100 07/11/19 17:51 Vital Signs Reviewed: Yes Respiratory: Positive: Normal breath sounds Skin: Positive: Rashes - face , 3 separate papular inflammed areas. Course/Dx - Course Course Of Treatment: 3 inflammed responses on face from unclear etiology, pt feels it is bites from possible roaches. Have asked her to tx the symptoms with antihistamine, she prefers topical. no other s/sx. vitals good. - Differential Diagnoses - Skin Complaint Differential Diagnoses: Abscess, Allergic Reaction, Drug Rash, Local Allergic Reaction, Other - Diagnoses Provider Diagnosis: Bug bites Discharge ED - Sign-Out/Discharge Documenting (check all that apply): Patient Departure All imaging exams completed and their final reports reviewed: No Studies - Discharge Plan Condition: Good Disposition: HOME Prescriptions: diPHENhydraMINE 2% CREAM(NF) [Benadryl 2% CREAM (NF)] 1 applic TOPICAL DAILY 10 Days #1 tube Patient Education Materials: Insect Bite or Sting (ED) Referrals: No Primary Care Phys,NOPCP [Primary Care Provider] - Additional Instructions: Please use anti-histamines for the symptoms. - Billing Disposition and Condition Condition: GOOD Disposition: Home - Attestation Statements Provider Attestation: Per institutional requirements, I have reviewed the chart, however, I was not consulted specifically or made aware of this patient by the midlevel provider. I did not personally evaluate, interact with , or disposition this patient.
== END 2019-07-11 18:54 | disposition home or self-care (01) ==
LOC: UCEAST 17:43
DX: S00.86XA Insect bite (nonvenomous) of other part of head, initial encounter (principal); J45.909 Unspecified asthma, uncomplicated; Z91.030 Bee allergy status; Z88.2 Allergy status to sulfonamides; Z88.8 Allergy status to other drugs, medicaments and biological substances; Z87.891 Personal history of nicotine dependence; W57.XXXA Bitten or stung by nonvenomous insect and other nonvenomous arthropods, initial encounter; Y92.9 Unspecified place or not applicable
CPT/HCPCS: 99202; G0463